=== PATIENT | female | born 1980 | race Caucasian/White ===

== ENCOUNTER 2016-11-24 12:13 | Emergency (ER) | payer OTHER ==
[2016-11-24 12:22] VITALS: BP 110/67
--- NOTE | 2016-11-24 12:27 | ED Physician Documentation ---
Sore Throat/Dental Pain - HPI Stated Complaint: Dental Pain Chief Complaint: Dental Pain Additional Information: has chronic teeth problems but dentist office is closed today. has pain and erythema in lower gingiva on left. Onset: days ago Context: Possible Infection Associated Symptoms: denies: fever, chills, sore throat Worsened By: nothing Further Comments: no - ROS CONST: no problems CVS/RESP: none GI/: denies: nausea, vomiting MS/SKIN/LYMPH: denies: muscle aches, rash NEURO/PSYCH: none - PAST HX Past History: gum disease Other History: none Immunizations: UTD Allergies/Adverse Reactions: Allergies Allergy/AdvReac Type Severity Reaction Status Date / Time No Known Allergies Allergy Unverified 11/24/16 12:18 Home Medications: Ambulatory Orders Medication Instructions Recorded NK [NK] 11/24/16 - SOCIAL HX Smoking History: cigarettes, greater than 1 pack/day Alcohol Use: none Drug Use: none - FAMILY HX Family History: No - VITAL SIGNS Vital Signs: Vital Signs Temp Pulse Resp BP Pulse Ox 98.4 F 78 18 110/67 99 11/24/16 12:15 11/24/16 12:15 11/24/16 12:15 11/24/16 12:15 11/24/16 12:15 - REVIEWED ASSESSMENTS Nursing Assessment Reviewed: Yes Vitals Reviewed: Yes Dental Pain Physical Exam - EXAM General Appearance: no acute distress, alert Head/Neck: head nml inspection Eyes: eyes nml inspection Mouth/Throat: lips nml, dental tenderness, gum swelling around teeth. No: pharyngeal erythema Ear/Nose: nml inspection Respiratory: no resp. distress Abdomen: soft Extremities: non-tender Skin: warm/dry, normal color Neuro/Psych: No: weakness, numbness Discharge Clincal Impression: Gingivostomatitis, Acute apical periodontitis Referrals: Primary Doctor,No [Primary Care Provider] - 2 Days Condition: Stable Disposition: 01 HOME, SELF-CARE Decision to Admit: NO Date of Decison to Admit: 11/24/16 Decision Time: 12:30
== END 2016-11-24 12:38 | disposition home or self-care (01) ==
LOC: ED 12:13
DX: K05.10 Chronic gingivitis, plaque induced (principal); K04.4 Acute apical periodontitis of pulpal origin
CPT/HCPCS: 99283